=== PATIENT | male | born 1980 | race Caucasian/White ===

== ENCOUNTER 2017-06-07 04:17 | Emergency (ER) | payer OTHER ==
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
== END 2017-06-07 05:20 | disposition home or self-care (01) ==
LOC: ER 04:17
DX: S01.81XA Laceration without foreign body of other part of head, initial encounter (principal); S40.021A Contusion of right upper arm, initial encounter; S10.93XA Contusion of unspecified part of neck, initial encounter; S40.019A Contusion of unspecified shoulder, initial encounter; Y04.0XXA Assault by unarmed brawl or fight, initial encounter
CPT/HCPCS: 12011; 99283; 99284